=== PATIENT | male | born 1985 | race Caucasian/White ===

== ENCOUNTER 2021-07-10 10:52 | Outpatient (CLI) | payer SELFPAY ==
[2021-07-10 11:33] LABS: PH Semen 7.5 (7.0-8.0); Viscosity Semen Droplets; White Blood Count Semen 0-4 /hpf
== END 2021-07-10 10:53 | disposition home or self-care (01) ==
PROVIDERS: Visit Provider Obstetrics & Gynecology
DX: Z31.41 Encounter for fertility testing (principal)
CPT/HCPCS: 80500; 89320